=== PATIENT | male | born 1950 | race Caucasian/White ===

== ENCOUNTER 2022-02-08 07:35 | Inpatient (IN) ==
[~2022-02-08 07:35] MED LIST: cefTRIAXone 1,000 MG in SODIUM CHLORIDE 0.9% 100 ML IV ONE
[2022-02-08] MEDS: LACTATED RINGERS 1,000 ML IV SCH ×2 (09:02→12:24)
[2022-02-08] MEDS ORDERED: ONDANSETRON 4 MG/2 ML VIAL ONE (09:05)
[2022-02-08] MEDS ORDERED: MIDAZOLAM 2 MG/2 ML VIAL ONE (09:05)
[2022-02-08] MEDS ORDERED: propofoL 200 MG/20 ML VIAL IV ONE (09:05)
[2022-02-08] MEDS ORDERED: fentaNYL 100 MCG/2 ML VIAL ONE (09:05)
[2022-02-08] MEDS ORDERED: PHENYLEPHRINE 1 MG/10 ML SYRINGE IV ONE (09:05)
[2022-02-08] MEDS ORDERED: LIDOCAINE 2% 5 ML VIAL ONE (09:05)
[2022-02-08] MEDS ORDERED: SEVOFLURANE 1 UNIT/15 MINUTE INH ONE (09:05)
[2022-02-08] MEDS ORDERED: ACETAMINOPHEN INJ 1,000 MG/100 ML VIAL IV ONE (10:06)
[2022-02-08] MEDS ORDERED: LACTATED RINGERS 1,000 ML IV ONE (11:33)
[2022-02-08] MEDS ORDERED: HYDROmorphone 1 MG/1 ML SYRINGE IV PRN (11:47)
[2022-02-08] MEDS ORDERED: oxyCODONE/ACETAMINOPHEN 5-325 MG TABLET PO PRN (11:47)
[2022-02-08] MEDS ORDERED: diphenhydrAMINE 50 MG/1 ML VIAL IV PRN (11:47)
[2022-02-08] MEDS ORDERED: PROMETHAZINE 25 MG/1 ML VIAL IM PRN (11:47)
[2022-02-08] MEDS ORDERED: MORPHINE ER 30 MG TABLET PO PRN (11:51)
[2022-02-08] MEDS ORDERED: CALCIUM CARBONATE CHEW 500 MG TABLET PO PRN (12:18)
[2022-02-08] MEDS ORDERED: SIMETHICONE CHEW 125 MG TABLET PO PRN (12:22)
[2022-02-08] MEDS ORDERED: NITROGLYCERIN SL 0.4 MG TABLET SL PRN (12:34)
[2022-02-08] MEDS ORDERED: ONDANSETRON 4 MG/2 ML VIAL IV PRN (12:37)
[2022-02-08] MEDS: HYDROmorphone 1 MG/1 ML SYRINGE IV PRN ×7 (12:39→23:06)
[2022-02-08] MEDS ORDERED: LABETALOL 20 MG/4 ML SYRINGE IV ONE ×2 (12:55→13:05)
[2022-02-08] MEDS ORDERED: hydrALAZINE 20 MG/1 ML VIAL IV ONE (13:37)
[2022-02-08] MEDS ORDERED: hydrALAZINE 20 MG/1 ML VIAL ONE (13:40)
[2022-02-08] MEDS: ACETAMINOPHEN 325 MG TABLET PO SCH ×2 (14:28→17:36)
[2022-02-08] MEDS: SODIUM CHLORIDE 0.9% 1,000 ML IV SCH (14:40)
[2022-02-08] MEDS ORDERED: NON-FORMULARY MEDICATION (Oxycodone-Acetaminophen 10-325 mg Tablet) PO PRN (15:41)
[2022-02-08] MEDS: PROPRANOLOL 20 MG TABLET PO SCH (20:43)
[2022-02-08] MEDS: PREGABALIN 75 MG CAPSULE PO SCH (20:43)
[2022-02-08] MEDS: ZALEPLON 5 MG CAPSULE PO SCH (20:43)
[2022-02-08] MEDS: RANOLAZINE 500 MG TABLET PO SCH (20:44)
[2022-02-08] MEDS: MORPHINE ER 15 MG TABLET PO SCH (20:44)
[2022-02-08] MEDS: DOCUSATE SODIUM 100 MG CAPSULE PO SCH (20:45)
[2022-02-08] MEDS: CYCLOBENZAPRINE 10 MG TABLET PO PRN (21:42)
[2022-02-08] MEDS ORDERED: hydrALAZINE 20 MG/1 ML VIAL IV PRN (23:20)
[2022-02-09] MEDS: ACETAMINOPHEN 325 MG TABLET PO SCH ×4 (01:00→19:32)
[2022-02-09] MEDS: HYDROmorphone 1 MG/1 ML SYRINGE IV PRN ×2 (02:19→05:38)
[2022-02-09] MEDS: SODIUM CHLORIDE 0.9% 1,000 ML IV SCH ×2 (03:33→18:13)
[2022-02-09] MEDS: MORPHINE ER 15 MG TABLET PO SCH (08:46)
[2022-02-09] MEDS: ASPIRIN EC 81 MG TABLET PO SCH (08:46)
[2022-02-09] MEDS: CYCLOBENZAPRINE 10 MG TABLET PO PRN (08:46)
[2022-02-09] MEDS: RANOLAZINE 500 MG TABLET PO SCH ×2 (08:47→21:34)
[2022-02-09] MEDS: TAMSULOSIN 0.4 MG CAPSULE PO SCH (08:47)
[2022-02-09] MEDS: FINASTERIDE 5 MG TABLET PO SCH (08:47)
[2022-02-09] MEDS: PREGABALIN 75 MG CAPSULE PO SCH ×2 (08:48→21:35)
[2022-02-09] MEDS: DOCUSATE SODIUM 100 MG CAPSULE PO SCH ×2 (08:48→21:34)
[2022-02-09 10:33] LABS: Basophils % 0.2 % (0.0-0.8); Eosinophils # 0.1 10*3/uL (0.0-0.87); Eosinophils % 0.7 % (0.00-10.9); Hematocrit 40.5 VOL% (42.0-52.0); Hemoglobin 13.6 GM/DL (14.0-18.0); Immature Granulocytes % 0.3 %; Immature Granulocytes Absolute 0.03 #; Lymphocytes # 2.2 10*3/uL (1.4-4.0); Lymphocytes % 21.4 % (21.2-54.2); Mean Corpuscular HGB Conc 33.6 GM/DL (32-36); Mean Corpuscular Volume 96.4 FL (87-102); Mean Platelet Volume 10.3 FL (9.6-12.0); Monocytes # 1.8 10*3/uL (0.11-0.8); Monocytes % 17.3 % (1.7-12.7); Neutrophils % 60.1 % (38.7-73.9); Platelet Count 184 T/CUMM (130-400); Red Cell Distribution Width 13.4 % (9.3-17.3); White Blood Count 10.3 T/CUMM (4-12)
[2022-02-09 10:46] LABS: Calcium 8.1 MG/DL (8.5-10.1); Osmolality,Calculated 273.7 MOS/KG (273-304); Potassium 3.4 MMOL/L (3.5-5.1)
[2022-02-09] MEDS: oxyCODONE/ACETAMINOPHEN 5-325 MG TABLET PO PRN ×3 (10:56→20:12)
[2022-02-09] MEDS: POLYETHYLENE GLYCOL POWDER 17 GM PACK PO SCH (10:57)
[2022-02-09] MEDS: cefTRIAXone 1,000 MG in SODIUM CHLORIDE 0.9% 100 ML IV SCH (10:58)
[2022-02-09 11:07] LABS: Anisocytosis Slight; Eosinophils 1 % (0-10); Lymphocytes 9 % (20-55); Platelet Estimate Adequate; Stomatocytes Slight; Total Cells Counted 100
[2022-02-09] MEDS ORDERED: MAGNESIUM SULF RIDER 4 GM/100 ML PREMIX IV PRN (13:43)
[2022-02-09] MEDS: ONDANSETRON 4 MG/2 ML VIAL IV PRN (13:48)
[2022-02-09] MEDS: PANTOPRAZOLE 40 MG TABLET PO SCH (13:48)
[2022-02-09] MEDS: carvediloL 12.5 MG TABLET PO SCH ×2 (13:48→21:35)
[2022-02-09] MEDS: SERTRALINE 100 MG TABLET PO SCH (13:48)
[2022-02-09] MEDS: OXYBUTYNIN 5 MG TABLET PO SCH ×2 (15:15→21:35)
[2022-02-09] MEDS: MAGNESIUM SULF RIDER 2 GM/50 ML PREMIX IV PRN (16:06)
[2022-02-09] MEDS: LACTATED RINGERS 1,000 ML IV SCH (18:10)
[2022-02-09] MEDS: POTASSIUM CHLORIDE 20 MEQ TABLET PO PRN ×2 (20:11→21:46)
[2022-02-09] MEDS: ATORVASTATIN 40 MG TABLET PO SCH (21:34)
[2022-02-09] MEDS: ZALEPLON 5 MG CAPSULE PO SCH (21:35)
[2022-02-09] MEDS: PROPRANOLOL 20 MG TABLET PO SCH (21:35)
[2022-02-09] MEDS: MORPHINE ER 30 MG TABLET PO SCH (21:35)
[2022-02-10] MEDS: ACETAMINOPHEN 325 MG TABLET PO SCH ×4 (00:19→18:23)
[2022-02-10] MEDS: POTASSIUM CHLORIDE 20 MEQ TABLET PO PRN (00:19)
[2022-02-10] MEDS: oxyCODONE/ACETAMINOPHEN 5-325 MG TABLET PO PRN ×6 (00:20→23:40)
[2022-02-10 05:40] LABS: Basophils % 0.2 % (0.0-0.8); Eosinophils # 0.2 10*3/uL (0.0-0.87); Eosinophils % 2.1 % (0.00-10.9); Hematocrit 39.1 VOL% (42.0-52.0); Immature Granulocytes % 0.3 %; Immature Granulocytes Absolute 0.03 #; Lymphocytes % 33.8 % (21.2-54.2); Mean Corpuscular HGB Conc 33.2 GM/DL (32-36); Mean Corpuscular Volume 98.2 FL (87-102); Mean Platelet Volume 10.7 FL (9.6-12.0); Monocytes # 1.3 10*3/uL (0.11-0.8); Monocytes % 14.7 % (1.7-12.7); Neutrophils % 48.9 % (38.7-73.9); Platelet Count 177 T/CUMM (130-400); Red Blood Count 3.98 MC/CUMM (3.8-5.5); Red Cell Distribution Width 13.5 % (9.3-17.3); White Blood Count 8.8 T/CUMM (4-12)
[2022-02-10 05:50] LABS: Calcium 7.7 MG/DL (8.5-10.1); Osmolality,Calculated 276.4 MOS/KG (273-304)
[2022-02-10 05:56] LABS: Risk Ratio 2.84; VLDL Cholesterol 17.6 MG/DL
[2022-02-10] MEDS: SODIUM CHLORIDE 0.9% 1,000 ML IV SCH ×3 (07:36→21:38)
[2022-02-10] MEDS: PREGABALIN 75 MG CAPSULE PO SCH ×2 (09:10→20:46)
[2022-02-10] MEDS: POLYETHYLENE GLYCOL POWDER 17 GM PACK PO SCH (09:10)
[2022-02-10] MEDS: carvediloL 12.5 MG TABLET PO SCH ×2 (09:11→20:46)
[2022-02-10] MEDS: TAMSULOSIN 0.4 MG CAPSULE PO SCH (09:11)
[2022-02-10] MEDS: MORPHINE ER 30 MG TABLET PO SCH ×2 (09:11→21:40)
[2022-02-10] MEDS: SERTRALINE 100 MG TABLET PO SCH (09:11)
[2022-02-10] MEDS: DOCUSATE SODIUM 100 MG CAPSULE PO SCH ×2 (09:11→20:47)
[2022-02-10] MEDS: FINASTERIDE 5 MG TABLET PO SCH (09:11)
[2022-02-10] MEDS: RANOLAZINE 500 MG TABLET PO SCH ×2 (09:11→20:47)
[2022-02-10] MEDS: ASPIRIN EC 81 MG TABLET PO SCH (09:12)
[2022-02-10] MEDS: OXYBUTYNIN 5 MG TABLET PO SCH ×3 (09:12→20:47)
[2022-02-10] MEDS: PANTOPRAZOLE 40 MG TABLET PO SCH (09:12)
[2022-02-10] MEDS: cefTRIAXone 1,000 MG in SODIUM CHLORIDE 0.9% 100 ML IV SCH (09:12)
[2022-02-10] MEDS: CYCLOBENZAPRINE 10 MG TABLET PO PRN (11:14)
[2022-02-10] MEDS: LACTATED RINGERS 1,000 ML IV SCH (11:17)
[2022-02-10] MEDS: ZALEPLON 5 MG CAPSULE PO SCH (20:46)
[2022-02-10] MEDS: PROPRANOLOL 20 MG TABLET PO SCH (20:47)
[2022-02-10] MEDS: ATORVASTATIN 40 MG TABLET PO SCH (21:40)
[2022-02-11] MEDS: ACETAMINOPHEN 325 MG TABLET PO SCH ×5 (01:44→23:49)
[2022-02-11] MEDS: CYCLOBENZAPRINE 10 MG TABLET PO PRN ×2 (01:44→21:20)
[2022-02-11] MEDS: oxyCODONE/ACETAMINOPHEN 5-325 MG TABLET PO PRN ×5 (04:21→22:22)
[2022-02-11 06:09] LABS: Basophils % 0.1 % (0.0-0.8); Eosinophils # 0.2 10*3/uL (0.0-0.87); Eosinophils % 2.1 % (0.00-10.9); Hematocrit 37.4 VOL% (42.0-52.0); Hemoglobin 12.6 GM/DL (14.0-18.0); Immature Granulocytes % 0.1 %; Immature Granulocytes Absolute 0.01 #; Lymphocytes # 2.2 10*3/uL (1.4-4.0); Lymphocytes % 29.9 % (21.2-54.2); Mean Corpuscular HGB Conc 33.7 GM/DL (32-36); Mean Corpuscular Volume 98.2 FL (87-102); Mean Platelet Volume 10.9 FL (9.6-12.0); Monocytes % 13.3 % (1.7-12.7); Neutrophils % 54.5 % (38.7-73.9); Platelet Count 179 T/CUMM (130-400); Red Blood Count 3.81 MC/CUMM (3.8-5.5); Red Cell Distribution Width 13.3 % (9.3-17.3); White Blood Count 7.5 T/CUMM (4-12)
[2022-02-11 06:38] LABS: Calcium 8.1 MG/DL (8.5-10.1); Osmolality,Calculated 275.4 MOS/KG (273-304); Potassium 3.5 MMOL/L (3.5-5.1)
[2022-02-11] MEDS ORDERED: carvediloL 12.5 MG TABLET PO SCH (08:00)
[2022-02-11] MEDS: FINASTERIDE 5 MG TABLET PO SCH (09:27)
[2022-02-11] MEDS: TAMSULOSIN 0.4 MG CAPSULE PO SCH ×2 (09:27→21:20)
[2022-02-11] MEDS: DOCUSATE SODIUM 100 MG CAPSULE PO SCH ×2 (09:28→21:27)
[2022-02-11] MEDS: cefTRIAXone 1,000 MG in SODIUM CHLORIDE 0.9% 100 ML IV SCH (09:28)
[2022-02-11] MEDS: ASPIRIN EC 81 MG TABLET PO SCH (09:28)
[2022-02-11] MEDS: RANOLAZINE 500 MG TABLET PO SCH ×2 (09:28→21:20)
[2022-02-11] MEDS: SERTRALINE 100 MG TABLET PO SCH (09:28)
[2022-02-11] MEDS: PREGABALIN 75 MG CAPSULE PO SCH ×2 (09:28→21:21)
[2022-02-11] MEDS: PANTOPRAZOLE 40 MG TABLET PO SCH (09:28)
[2022-02-11] MEDS: OXYBUTYNIN 5 MG TABLET PO SCH (09:28)
[2022-02-11] MEDS: POLYETHYLENE GLYCOL POWDER 17 GM PACK PO SCH ×2 (09:29→11:26)
[2022-02-11] MEDS: LACTATED RINGERS 1,000 ML IV SCH (09:33)
[2022-02-11] MEDS: MORPHINE ER 30 MG TABLET PO SCH ×2 (09:34→21:23)
[2022-02-11] MEDS: SODIUM CHLORIDE 0.9% 1,000 ML IV SCH (09:34)
[2022-02-11] MEDS ORDERED: MORPHINE ER 30 MG TABLET PO ONE (12:15)
[2022-02-11] MEDS: carvediloL 25 MG TABLET PO SCH (17:34)
[2022-02-11] MEDS: ONDANSETRON 4 MG/2 ML VIAL IV PRN (17:35)
[2022-02-11] MEDS: ZALEPLON 5 MG CAPSULE PO SCH (21:20)
[2022-02-11] MEDS: ATORVASTATIN 40 MG TABLET PO SCH (21:20)
[2022-02-11 22:51] LABS: Stone Analysis Interpretation SEE COMMENTS; Stone Source Left Ureter
[2022-02-12] MEDS: oxyCODONE/ACETAMINOPHEN 5-325 MG TABLET PO PRN ×2 (02:27→06:22)
[2022-02-12 05:41] LABS: Basophils % 0.3 % (0.0-0.8); Eosinophils # 0.2 10*3/uL (0.0-0.87); Eosinophils % 2.2 % (0.00-10.9); Hematocrit 35.9 VOL% (42.0-52.0); Hemoglobin 12.1 GM/DL (14.0-18.0); Immature Granulocytes % 0.3 %; Immature Granulocytes Absolute 0.02 #; Lymphocytes # 2.9 10*3/uL (1.4-4.0); Lymphocytes % 40.1 % (21.2-54.2); Mean Corpuscular HGB Conc 33.7 GM/DL (32-36); Mean Corpuscular Volume 97.8 FL (87-102); Mean Platelet Volume 10.7 FL (9.6-12.0); Monocytes # 1.1 10*3/uL (0.11-0.8); Monocytes % 14.8 % (1.7-12.7); Neutrophils % 42.3 % (38.7-73.9); Platelet Count 203 T/CUMM (130-400); Red Blood Count 3.67 MC/CUMM (3.8-5.5); Red Cell Distribution Width 13.3 % (9.3-17.3); White Blood Count 7.2 T/CUMM (4-12)
[2022-02-12 05:54] LABS: Osmolality,Calculated 276.4 MOS/KG (273-304); Potassium 3.8 MMOL/L (3.5-5.1)
[2022-02-12] MEDS: POTASSIUM CHLORIDE 20 MEQ TABLET PO PRN (06:22)
[2022-02-12] MEDS: MAGNESIUM SULF RIDER 2 GM/50 ML PREMIX IV PRN (06:23)
[2022-02-12] MEDS: ACETAMINOPHEN 325 MG TABLET PO SCH (06:29)
[2022-02-12 07:18] VITALS: BP 156/75
[2022-02-12] MEDS: POLYETHYLENE GLYCOL POWDER 17 GM PACK PO SCH (08:52)
[2022-02-12] MEDS: cefTRIAXone 1,000 MG in SODIUM CHLORIDE 0.9% 100 ML IV SCH (08:52)
[2022-02-12] MEDS: PANTOPRAZOLE 40 MG TABLET PO SCH (08:53)
[2022-02-12] MEDS: MORPHINE ER 30 MG TABLET PO SCH (08:54)
[2022-02-12] MEDS: PREGABALIN 75 MG CAPSULE PO SCH (08:54)
[2022-02-12] MEDS: FINASTERIDE 5 MG TABLET PO SCH (08:54)
[2022-02-12] MEDS: SERTRALINE 100 MG TABLET PO SCH (08:54)
[2022-02-12] MEDS: RANOLAZINE 500 MG TABLET PO SCH (08:54)
[2022-02-12] MEDS: ASPIRIN EC 81 MG TABLET PO SCH (08:56)
[2022-02-12] MEDS: TAMSULOSIN 0.4 MG CAPSULE PO SCH (08:57)
[2022-02-12] MEDS: carvediloL 25 MG TABLET PO SCH (08:57)
[2022-02-12] MEDS: DOCUSATE SODIUM 100 MG CAPSULE PO SCH (08:57)
[2022-02-12] MEDS: LACTATED RINGERS 1,000 ML IV SCH (11:05)
[2022-02-12] MEDS ORDERED: MORPHINE ER 30 MG TABLET PO SCH (12:00)
== END 2022-02-12 10:35 | disposition home or self-care (01) | DRG 661 ==
LOC: N.OR 07:35 → N.SDSINP 07:35 → N.3E 14:14
PROVIDERS: ADMIT Surgery; ATTEND Surgery

== ENCOUNTER 2022-03-08 17:00 | Inpatient (IN) ==
[~2022-03-08 17:00] MED LIST changes: +PIPERACILLIN/TAZOBACTAM 3,375 MG in SODIUM CHLORIDE 0.9% 100 ML IV SCH; -cefTRIAXone 1,000 MG in SODIUM CHLORIDE 0.9% 100 ML IV ONE
[2022-03-08] MEDS ORDERED: SODIUM CHLORIDE 0.9% 1,000 ML IV STA (17:45)
[2022-03-08] MEDS ORDERED: ONDANSETRON 4 MG/2 ML VIAL IV STA (17:45)
[2022-03-08 17:56] LABS: Basophils % 0.1 % (0.0-0.8); Hematocrit 43.6 VOL% (42.0-52.0); Hemoglobin 15.5 GM/DL (14.0-18.0); Immature Granulocytes % 0.1 %; Immature Granulocytes Absolute 0.01 #; Lymphocytes # 1.7 10*3/uL (1.4-4.0); Lymphocytes % 24.5 % (21.2-54.2); Mean Corpuscular HGB Conc 35.6 GM/DL (32-36); Mean Platelet Volume 10.9 FL (9.6-12.0); Monocytes # 0.7 10*3/uL (0.11-0.8); Monocytes % 10.8 % (1.7-12.7); Neutrophils % 64.5 % (38.7-73.9); Platelet Count 254 T/CUMM (130-400); Red Blood Count 4.79 MC/CUMM (3.8-5.5); Red Cell Distribution Width 12.2 % (9.3-17.3); White Blood Count 6.8 T/CUMM (4-12)
[2022-03-08 18:14] LABS: Calcium 8.8 MG/DL (8.5-10.1); Osmolality,Calculated 276.5 MOS/KG (273-304); Potassium 3.3 MMOL/L (3.5-5.1); Total Protein 7.1 G/DL (6.4-8.2)
[2022-03-08] MEDS ORDERED: PROMETHAZINE INJ 12.5 MG in SODIUM CHLORIDE 0.9% 50 ML IV STA (18:56)
[2022-03-08] MEDS ORDERED: PIPERACILLIN/TAZOBACTAM 3,375 MG in SODIUM CHLORIDE 0.9% 100 ML IV STA (18:56)
[2022-03-08] MEDS ORDERED: HYDROmorphone 1 MG/1 ML SYRINGE IV STA (19:19)
[2022-03-08] MEDS ORDERED: PROMETHAZINE 25 MG/1 ML VIAL ONE ×2 (19:24)
[2022-03-08] MEDS ORDERED: GLUCAGON 1 MG VIAL IM PRN (19:46)
[2022-03-08] MEDS ORDERED: hydrALAZINE 20 MG/1 ML VIAL IV PRN (19:46)
[2022-03-08] MEDS ORDERED: PROMETHAZINE 25 MG/1 ML VIAL IM PRN (19:46)
[2022-03-08] MEDS ORDERED: DEXTROSE 10% 250 ML BAG IV PRN (19:56)
[2022-03-08] MEDS ORDERED: POTASSIUM CHLORIDE 20 MEQ TABLET PO STA (19:56)
[2022-03-08] MEDS ORDERED: MAGNESIUM SULF RIDER 2 GM/50 ML PREMIX IV ONE (19:56)
[2022-03-08] MEDS ORDERED: ZALEPLON 5 MG CAPSULE PO PRN (20:19)
[2022-03-08] MEDS: ENOXAPARIN 40 MG/0.4 ML SYRINGE SUBCUT SCH (21:00)
[2022-03-08] MEDS: SODIUM CHLORIDE 0.9% 1,000 ML IV SCH (21:00)
[2022-03-08 21:45] LABS: Mucus,Urine Occasional /LPF (Occasional); RBC,Urine 454 /HPF (0-4)
[2022-03-08 21:46] LABS: Bilirubin,Urine Negative (Negative); Blood, Urine Large mg/dL (Negative); Glucose,Urine (UA) Negative (Negative); Ketones,Urine 80 mg/dL (Negative); Nitrite,Urine Negative (Negative); Protein,Urine 30 mg/dL (Negative); Urine Appearance Clear (Clear); Urine Color Yellow (Yellow); Urine Specific Gravity 1.015 (1.001-1.035); Urine Urobilinogen 0.2 eU/dL (<2.0)
[2022-03-08] MEDS: ATORVASTATIN 40 MG TABLET PO SCH (22:00)
[2022-03-08] MEDS: RANOLAZINE 500 MG TABLET PO SCH (22:00)
[2022-03-08] MEDS: TAMSULOSIN 0.4 MG CAPSULE PO SCH (22:01)
[2022-03-08] MEDS: HYDROmorphone 1 MG/1 ML SYRINGE IV PRN (23:50)
[2022-03-09] MEDS ORDERED: OXYMETAZOLINE 0.05% NASAL SPRAY 15 ML BOTTLE BOTH NARES PRN (00:49)
[2022-03-09] MEDS ORDERED: ACETAMINOPHEN 325 MG TABLET PO ONE (00:53)
[2022-03-09] MEDS: PIPERACILLIN/TAZOBACTAM 3,375 MG in SODIUM CHLORIDE 0.9% 100 ML IV SCH ×3 (03:16→20:35)
[2022-03-09] MEDS: HYDROmorphone 1 MG/1 ML SYRINGE IV PRN ×2 (04:13→08:05)
[2022-03-09 05:44] LABS: Basophils % 0.1 % (0.0-0.8); Eosinophils # 0.1 10*3/uL (0.0-0.87); Eosinophils % 0.8 % (0.00-10.9); Hematocrit 36.6 VOL% (42.0-52.0); Immature Granulocytes % 0.3 %; Immature Granulocytes Absolute 0.02 #; Lymphocytes # 2.7 10*3/uL (1.4-4.0); Mean Corpuscular HGB Conc 35.5 GM/DL (32-36); Mean Corpuscular Volume 92.2 FL (87-102); Mean Platelet Volume 11.2 FL (9.6-12.0); Monocytes % 13.6 % (1.7-12.7); Neutrophils % 48.2 % (38.7-73.9); Platelet Count 202 T/CUMM (130-400); Red Blood Count 3.97 MC/CUMM (3.8-5.5); Red Cell Distribution Width 12.5 % (9.3-17.3); White Blood Count 7.4 T/CUMM (4-12)
[2022-03-09 06:12] LABS: Albumin 3.4 G/DL (3.4-5.0); Bilirubin,Total 0.8 MG/DL (0.20-1.00); Calcium 7.9 MG/DL (8.5-10.1); Osmolality,Calculated 278.3 MOS/KG (273-304); Potassium 3.3 MMOL/L (3.5-5.1); Risk Ratio 3.12; Total Protein 6.1 G/DL (6.4-8.2); VLDL Cholesterol 27.2 MG/DL
[2022-03-09] MEDS ORDERED: POTASSIUM CHLORIDE 20 MEQ TABLET PO ONE (07:37)
[2022-03-09 08:43] LABS: AFP Tumor 5.9 NG/ML (0-8); Carcinoembryonic Antigen < 0.50 NG/ML (0.0-5.0)
[2022-03-09 08:45] LABS: Cancer Antigen 19-9 4.55 U/ML (0-35)
[2022-03-09] MEDS: ONDANSETRON 4 MG/2 ML VIAL IV PRN (09:23)
[2022-03-09] MEDS: PANTOPRAZOLE 40 MG VIAL IV SCH (11:21)
[2022-03-09] MEDS: RANOLAZINE 500 MG TABLET PO SCH ×2 (11:22→20:35)
[2022-03-09] MEDS: carvediloL 12.5 MG TABLET PO SCH ×2 (11:23→16:40)
[2022-03-09] MEDS: PREGABALIN 75 MG CAPSULE PO SCH ×2 (11:23→20:35)
[2022-03-09] MEDS: TAMSULOSIN 0.4 MG CAPSULE PO SCH ×2 (11:23→20:35)
[2022-03-09] MEDS: ASPIRIN EC 81 MG TABLET PO SCH (11:24)
[2022-03-09] MEDS ORDERED: amLODIPine 5 MG TABLET PO ONE (11:26)
[2022-03-09] MEDS: SODIUM CHLORIDE 0.9% 1,000 ML IV SCH ×2 (11:29→14:09)
[2022-03-09] MEDS ORDERED: SIMETHICONE CHEW 125 MG TABLET PO ONE (11:30)
[2022-03-09] MEDS ORDERED: BUTALBITAL/ACETAMIN/CAFFEINE 50-325-40 MG TABLET PO SCH (13:00)
[2022-03-09] MEDS ORDERED: oxyCODONE/ACETAMINOPHEN 5-325 MG TABLET PO SCH ×2 (13:00→15:00)
[2022-03-09] MEDS ORDERED: MORPHINE ER 30 MG TABLET PO SCH ×2 (15:00→22:00)
[2022-03-09] MEDS ORDERED: BUTALBITAL/ACETAMIN/CAFFEINE 50-325-40 MG TABLET PO PRN (16:22)
[2022-03-09] MEDS: MORPHINE ER 30 MG TABLET PO SCH (20:35)
[2022-03-09] MEDS: ENOXAPARIN 40 MG/0.4 ML SYRINGE SUBCUT SCH (20:35)
[2022-03-09] MEDS: ATORVASTATIN 40 MG TABLET PO SCH (20:35)
[2022-03-10] MEDS: oxyCODONE/ACETAMINOPHEN 5-325 MG TABLET PO PRN ×4 (00:30→23:10)
[2022-03-10] MEDS: traZODone 50 MG TABLET PO PRN ×2 (00:30→22:10)
[2022-03-10] MEDS: PIPERACILLIN/TAZOBACTAM 3,375 MG in SODIUM CHLORIDE 0.9% 100 ML IV SCH ×3 (04:00→20:30)
[2022-03-10 06:00] LABS: Basophils % 0.3 % (0.0-0.8); Eosinophils # 0.2 10*3/uL (0.0-0.87); Eosinophils % 2.1 % (0.00-10.9); Hematocrit 38.6 VOL% (42.0-52.0); Hemoglobin 13.2 GM/DL (14.0-18.0); Immature Granulocytes % 0.1 %; Immature Granulocytes Absolute 0.01 #; Lymphocytes # 3.8 10*3/uL (1.4-4.0); Lymphocytes % 50.3 % (21.2-54.2); Mean Corpuscular HGB Conc 34.2 GM/DL (32-36); Mean Corpuscular Volume 92.8 FL (87-102); Mean Platelet Volume 11.2 FL (9.6-12.0); Monocytes % 13.8 % (1.7-12.7); Neutrophils % 33.4 % (38.7-73.9); Platelet Count 205 T/CUMM (130-400); Red Blood Count 4.16 MC/CUMM (3.8-5.5); Red Cell Distribution Width 12.6 % (9.3-17.3); White Blood Count 7.5 T/CUMM (4-12)
[2022-03-10 06:08] LABS: Calcium 8.1 MG/DL (8.5-10.1); Potassium 3.4 MMOL/L (3.5-5.1)
[2022-03-10] MEDS: MORPHINE ER 30 MG TABLET PO SCH ×3 (06:25→20:30)
[2022-03-10 07:31] LABS: Eosinophils 2 % (0-10); Lymphocytes 49 % (20-55); Platelet Estimate Normal; Total Cells Counted 100
[2022-03-10 07:33] LABS: Ovalocytes Slight
[2022-03-10 07:34] LABS: Anisocytosis Slight
[2022-03-10] MEDS ORDERED: POTASSIUM CHLORIDE 20 MEQ TABLET PO ONE (10:01)
[2022-03-10] MEDS: SODIUM CHLORIDE 0.9% 1,000 ML IV SCH ×2 (10:46→16:51)
[2022-03-10] MEDS: amLODIPine 5 MG TABLET PO SCH (10:46)
[2022-03-10] MEDS: FINASTERIDE 5 MG TABLET PO SCH (10:47)
[2022-03-10] MEDS: TAMSULOSIN 0.4 MG CAPSULE PO SCH ×2 (10:47→20:30)
[2022-03-10] MEDS: PANTOPRAZOLE 40 MG VIAL IV SCH (10:47)
[2022-03-10] MEDS: ASPIRIN EC 81 MG TABLET PO SCH (10:47)
[2022-03-10] MEDS: RANOLAZINE 500 MG TABLET PO SCH ×2 (10:47→20:30)
[2022-03-10] MEDS: carvediloL 12.5 MG TABLET PO SCH ×2 (10:47→17:29)
[2022-03-10] MEDS: PREGABALIN 75 MG CAPSULE PO SCH ×2 (10:47→20:30)
[2022-03-10] MEDS: ATORVASTATIN 40 MG TABLET PO SCH (20:30)
[2022-03-10] MEDS: ENOXAPARIN 40 MG/0.4 ML SYRINGE SUBCUT SCH (20:30)
[2022-03-10] MEDS: ONDANSETRON 4 MG/2 ML VIAL IV PRN (20:45)
[2022-03-10] MEDS: SIMETHICONE CHEW 125 MG TABLET PO PRN (20:45)
[2022-03-11] MEDS: PIPERACILLIN/TAZOBACTAM 3,375 MG in SODIUM CHLORIDE 0.9% 100 ML IV SCH ×2 (03:05→12:09)
[2022-03-11] MEDS: MORPHINE ER 30 MG TABLET PO SCH ×2 (05:30→12:25)
[2022-03-11 05:38] LABS: Basophils % 0.3 % (0.0-0.8); Eosinophils # 0.2 10*3/uL (0.0-0.87); Hematocrit 33.9 VOL% (42.0-52.0); Hemoglobin 11.6 GM/DL (14.0-18.0); Immature Granulocytes % 0.2 %; Immature Granulocytes Absolute 0.01 #; Lymphocytes # 3.1 10*3/uL (1.4-4.0); Lymphocytes % 52.6 % (21.2-54.2); Mean Corpuscular HGB Conc 34.2 GM/DL (32-36); Mean Corpuscular Volume 93.9 FL (87-102); Mean Platelet Volume 10.7 FL (9.6-12.0); Monocytes # 0.8 10*3/uL (0.11-0.8); Monocytes % 12.9 % (1.7-12.7); Platelet Count 196 T/CUMM (130-400); Red Blood Count 3.61 MC/CUMM (3.8-5.5); Red Cell Distribution Width 12.6 % (9.3-17.3)
[2022-03-11 05:55] LABS: Calcium 8.1 MG/DL (8.5-10.1); Osmolality,Calculated 280.1 MOS/KG (273-304); Potassium 3.4 MMOL/L (3.5-5.1)
[2022-03-11 06:07] LABS: Eosinophils 2 % (0-10); Lymphocytes 56 % (20-55); Platelet Estimate Adequate; Total Cells Counted 100
[2022-03-11] MEDS ORDERED: POTASSIUM CHLORIDE 20 MEQ TABLET PO ONE (08:08)
[2022-03-11] MEDS ORDERED: metroNIDAZOLE 500 MG TABLET PO SCH (09:00)
[2022-03-11] MEDS: RANOLAZINE 500 MG TABLET PO SCH (10:25)
[2022-03-11] MEDS: carvediloL 12.5 MG TABLET PO SCH (10:25)
[2022-03-11] MEDS: ASPIRIN EC 81 MG TABLET PO SCH (10:25)
[2022-03-11] MEDS: PANTOPRAZOLE 40 MG VIAL IV SCH (10:25)
[2022-03-11] MEDS: SIMETHICONE CHEW 125 MG TABLET PO PRN (10:26)
[2022-03-11] MEDS: TAMSULOSIN 0.4 MG CAPSULE PO SCH (10:26)
[2022-03-11] MEDS: PREGABALIN 75 MG CAPSULE PO SCH (10:26)
[2022-03-11] MEDS: FINASTERIDE 5 MG TABLET PO SCH (10:26)
[2022-03-11] MEDS: oxyCODONE/ACETAMINOPHEN 5-325 MG TABLET PO PRN (10:26)
[2022-03-11] MEDS: amLODIPine 5 MG TABLET PO SCH (10:26)
[2022-03-11 12:40] VITALS: BP 142/85
== END 2022-03-11 13:31 | disposition home or self-care (01) | DRG 988 ==
LOC: EDUNIT# → EDBD → N.ED 17:00 → N.EDINP 19:46 → N.5E 21:46
PROVIDERS: ADMIT Internal Medicine; ATTEND Internal Medicine

== ENCOUNTER 2022-10-21 15:17 | Inpatient (IN) ==
[2022-10-21] MEDS ORDERED: ONDANSETRON 4 MG/2 ML VIAL IV ONE ×2 (15:41→17:26)
[2022-10-21] MEDS ORDERED: ACETAMINOPHEN 325 MG TABLET PO ONE (15:41)
[2022-10-21] MEDS ORDERED: SODIUM CHLORIDE 0.9% 1,000 ML IV STA (15:41)
[2022-10-21] MEDS ORDERED: MORPHINE 2 MG/1 ML SYRINGE IV ONE ×2 (15:41→17:26)
[2022-10-21 15:49] LABS: Basophils % 0.3 % (0.0-0.8); Eosinophils # 0.1 10*3/uL (0.0-0.87); Eosinophils % 0.9 % (0.00-10.9); Hemoglobin 11.9 GM/DL (14.0-18.0); Immature Granulocytes % 0.4 %; Immature Granulocytes Absolute 0.03 #; Lymphocytes # 1.2 10*3/uL (1.4-4.0); Lymphocytes % 17.4 % (21.2-54.2); Mean Corpuscular Volume 90.2 FL (87-102); Mean Platelet Volume 9.3 FL (9.6-12.0); Monocytes # 1.1 10*3/uL (0.11-0.8); Monocytes % 15.4 % (1.7-12.7); Neutrophils % 65.6 % (38.7-73.9); Platelet Count 202 T/CUMM (130-400); Red Blood Count 3.88 MC/CUMM (3.8-5.5); Red Cell Distribution Width 12.9 % (9.3-17.3)
[2022-10-21 16:11] LABS: Albumin 3.2 G/DL (3.4-5.0); Bilirubin,Total 0.4 MG/DL (0.20-1.00); Calcium 8.5 MG/DL (8.5-10.1); Osmolality,Calculated 267.2 MOS/KG (273-304); Potassium 3.8 MMOL/L (3.5-5.1); Total Protein 6.7 G/DL (6.4-8.2)
[2022-10-21] MEDS ORDERED: PIPERACILLIN/TAZOBACTAM 3,375 MG in SODIUM CHLORIDE 0.9% 100 ML IV STA (17:22)
[2022-10-21 17:39] LABS: Mucus,Urine Occasional /LPF (Occasional); RBC,Urine 57 /HPF (0-4)
[2022-10-21 17:40] LABS: Bilirubin,Urine Negative (Negative); Blood, Urine Moderate mg/dL (Negative); Glucose,Urine (UA) Negative (Negative); Ketones,Urine Negative (Negative); Nitrite,Urine Positive (Negative); Protein,Urine 100 mg/dL (Negative); Urine Appearance Cloudy (Clear); Urine Color Yellow (Yellow); Urine Specific Gravity 1.015 (1.001-1.035); Urine Urobilinogen 0.2 eU/dL (<2.0); Urine pH 8.5 (4.5-8.0)
[2022-10-21] MEDS ORDERED: ZALEPLON 5 MG CAPSULE PO PRN (18:29)
[2022-10-21] MEDS ORDERED: DOCUSATE SODIUM 100 MG CAPSULE PO PRN (18:29)
[2022-10-21] MEDS ORDERED: NITROGLYCERIN 0.6 MG SL PRN (18:36)
[2022-10-21] MEDS ORDERED: traZODone 50 MG TABLET PO PRN (18:49)
[2022-10-21] MEDS ORDERED: CYCLOBENZAPRINE 10 MG TABLET PO PRN (18:51)
[2022-10-21] MEDS ORDERED: ENOXAPARIN 40 MG/0.4 ML SYRINGE SUBCUT SCH (21:00)
[2022-10-21] MEDS: MORPHINE ER 15 MG TABLET PO SCH (22:30)
[2022-10-21] MEDS: carvediloL 12.5 MG TABLET PO SCH (22:30)
[2022-10-21] MEDS: PREGABALIN 75 MG CAPSULE PO SCH (22:30)
[2022-10-21] MEDS: RANOLAZINE 500 MG TABLET PO SCH (22:30)
[2022-10-21] MEDS: SODIUM CHLORIDE 0.45% 1,000 ML IV SCH (22:50)
[2022-10-22] MEDS: PIPERACILLIN/TAZOBACTAM 3,375 MG in SODIUM CHLORIDE 0.9% 100 ML IV SCH ×2 (02:30→09:41)
[2022-10-22 04:38] LABS: Basophils % 0.1 % (0.0-0.8); Hematocrit 36.6 VOL% (42.0-52.0); Hemoglobin 12.6 GM/DL (14.0-18.0); Immature Granulocytes % 0.6 %; Immature Granulocytes Absolute 0.07 #; Lymphocytes % 8.3 % (21.2-54.2); Mean Corpuscular HGB Conc 34.4 GM/DL (32-36); Mean Corpuscular Volume 90.4 FL (87-102); Mean Platelet Volume 9.5 FL (9.6-12.0); Monocytes # 0.9 10*3/uL (0.11-0.8); Platelet Count 192 T/CUMM (130-400); Red Blood Count 4.05 MC/CUMM (3.8-5.5); White Blood Count 11.4 T/CUMM (4-12)
[2022-10-22 04:50] LABS: Calcium 7.9 MG/DL (8.5-10.1); Osmolality,Calculated 264.4 MOS/KG (273-304)
[2022-10-22] MEDS: PREGABALIN 75 MG CAPSULE PO SCH ×2 (08:38→21:30)
[2022-10-22] MEDS: carvediloL 12.5 MG TABLET PO SCH ×2 (08:38→21:30)
[2022-10-22] MEDS: ASPIRIN EC 81 MG TABLET PO SCH (08:38)
[2022-10-22] MEDS: ATORVASTATIN 40 MG TABLET PO SCH (08:38)
[2022-10-22] MEDS: TAMSULOSIN 0.4 MG CAPSULE PO SCH (08:38)
[2022-10-22] MEDS: RANOLAZINE 500 MG TABLET PO SCH ×2 (08:38→21:29)
[2022-10-22] MEDS: PANTOPRAZOLE 40 MG TABLET PO SCH (08:38)
[2022-10-22] MEDS: FINASTERIDE 5 MG TABLET PO SCH (08:38)
[2022-10-22] MEDS: MORPHINE ER 15 MG TABLET PO SCH ×2 (08:39→21:30)
[2022-10-22] MEDS ORDERED: CLOPIDOGREL 75 MG TABLET PO SCH (09:00)
[2022-10-22] MEDS: SODIUM CHLORIDE 0.45% 1,000 ML IV SCH ×2 (11:24→17:30)
[2022-10-22] MEDS ORDERED: SODIUM CHLORIDE 0.9% 500 ML IV ONE (11:48)
[2022-10-22] MEDS ORDERED: SODIUM CHLORIDE 0.9% 500 ML IV SCH (12:00)
[2022-10-22] MEDS ORDERED: LACTATED RINGERS 1,000 ML IV ONE (15:08)
[2022-10-22] MEDS: ERTAPENEM 1,000 MG in SODIUM CHLORIDE 0.9% 100 ML IV SCH (16:40)
[2022-10-22] MEDS: ONDANSETRON 4 MG/2 ML VIAL IV PRN (23:00)
[2022-10-23] MEDS: SODIUM CHLORIDE 0.45% 1,000 ML IV SCH ×2 (02:37→10:51)
[2022-10-23 05:48] LABS: Basophils % 0.1 % (0.0-0.8); Eosinophils % 0.3 % (0.00-10.9); Hematocrit 30.9 VOL% (42.0-52.0); Hemoglobin 10.4 GM/DL (14.0-18.0); Immature Granulocytes % 1.3 %; Immature Granulocytes Absolute 0.13 #; Lymphocytes # 1.2 10*3/uL (1.4-4.0); Lymphocytes % 11.3 % (21.2-54.2); Mean Corpuscular HGB Conc 33.7 GM/DL (32-36); Mean Corpuscular Volume 90.1 FL (87-102); Monocytes # 1.2 10*3/uL (0.11-0.8); Monocytes % 11.8 % (1.7-12.7); Neutrophils % 75.2 % (38.7-73.9); Platelet Count 170 T/CUMM (130-400); Red Blood Count 3.43 MC/CUMM (3.8-5.5); Red Cell Distribution Width 13.2 % (9.3-17.3); White Blood Count 10.3 T/CUMM (4-12)
[2022-10-23 06:10] LABS: Albumin 2.5 G/DL (3.4-5.0); Bilirubin,Total 0.4 MG/DL (0.20-1.00); Osmolality,Calculated 263.7 MOS/KG (273-304); Potassium 3.7 MMOL/L (3.5-5.1)
[2022-10-23 06:11] LABS: Lymphocytes 14 % (20-55); Platelet Estimate Adequate; Total Cells Counted 100
[2022-10-23 06:12] LABS: Hypochromia Slight; Microcytosis Slight
[2022-10-23] MEDS: ONDANSETRON 4 MG/2 ML VIAL IV PRN ×2 (06:17→20:02)
[2022-10-23] MEDS: ASPIRIN EC 81 MG TABLET PO SCH (08:22)
[2022-10-23] MEDS: ATORVASTATIN 40 MG TABLET PO SCH (08:23)
[2022-10-23] MEDS: FINASTERIDE 5 MG TABLET PO SCH (08:23)
[2022-10-23] MEDS: PREGABALIN 75 MG CAPSULE PO SCH ×2 (08:23→22:54)
[2022-10-23] MEDS: TAMSULOSIN 0.4 MG CAPSULE PO SCH (08:23)
[2022-10-23] MEDS: MORPHINE ER 15 MG TABLET PO SCH ×2 (08:23→21:07)
[2022-10-23] MEDS: PANTOPRAZOLE 40 MG TABLET PO SCH (08:23)
[2022-10-23] MEDS: carvediloL 12.5 MG TABLET PO SCH ×2 (08:23→22:54)
[2022-10-23] MEDS: RANOLAZINE 500 MG TABLET PO SCH ×2 (08:24→22:54)
[2022-10-23] MEDS: HYDROmorphone 1 MG/1 ML SYRINGE IV PRN ×3 (16:10→23:26)
[2022-10-23 16:28] LABS: Bacteria,Urine Occasional /HPF (Few); RBC,Urine 2786 /HPF (0-4); Urine Appearance Cloudy (Clear); Urine Color Brown (Yellow)
[2022-10-23 16:29] LABS: Bilirubin,Urine Moderate mg/dL (Negative); Blood, Urine Large mg/dL (Negative); Glucose,Urine (UA) 100 mg/dL (Negative); Ketones,Urine Trace mg/dL (Negative); Nitrite,Urine Negative (Negative); Protein,Urine >=300 mg/dL (Negative); Urine Specific Gravity 1.015 (1.001-1.035)
[2022-10-23] MEDS: ERTAPENEM 1,000 MG in SODIUM CHLORIDE 0.9% 100 ML IV SCH (21:06)
[2022-10-23] MEDS: ALUMINUM/MAGNES/SIMETH MAX STR 30 ML UDCUP PO PRN (22:15)
[2022-10-23] MEDS: METOCLOPRAMIDE 10 MG/2 ML VIAL IV PRN (23:12)
[2022-10-23] MEDS: DEXTROSE 5% NACL 0.9% 1,000 ML IV SCH (23:13)
[2022-10-24] MEDS: HYDROmorphone 1 MG/1 ML SYRINGE IV PRN ×3 (02:29→09:20)
[2022-10-24] MEDS: ONDANSETRON 4 MG/2 ML VIAL IV PRN (02:32)
[2022-10-24] MEDS: BUTALBITAL/ACETAMIN/CAFFEINE 50-325-40 MG TABLET PO PRN (05:17)
[2022-10-24] MEDS: METOCLOPRAMIDE 10 MG/2 ML VIAL IV PRN (05:44)
[2022-10-24 05:50] LABS: Hematocrit 24.3 VOL% (42.0-52.0); Immature Granulocytes % 1.5 %; Immature Granulocytes Absolute 0.17 #; Lymphocytes # 0.7 10*3/uL (1.4-4.0); Lymphocytes % 6.2 % (21.2-54.2); Mean Corpuscular HGB Conc 33.7 GM/DL (32-36); Mean Corpuscular Volume 90.3 FL (87-102); Mean Platelet Volume 9.3 FL (9.6-12.0); Monocytes # 1.5 10*3/uL (0.11-0.8); Monocytes % 12.6 % (1.7-12.7); Neutrophils % 79.7 % (38.7-73.9); Platelet Count 200 T/CUMM (130-400); Red Cell Distribution Width 13.3 % (9.3-17.3); White Blood Count 11.6 T/CUMM (4-12)
[2022-10-24 05:55] LABS: Alanine Aminotransferase 23 U/L (16-61); Albumin 2.4 G/DL (3.4-5.0); Alkaline Phosphatase 63 U/L (45-117); Aspartate Amino Transferase 26 U/L (0-37); Bilirubin,Total < 0.39 MG/DL (0.20-1.00); Blood Urea Nitrogen 16 MG/DL (7-18); Calcium 7.8 MG/DL (8.5-10.1); Carbon Dioxide 19 MMOL/L (21-32); Chloride 101 MMOL/L (98-107); Glucose 124 MG/DL (74-106); Osmolality,Calculated 269.2 MOS/KG (273-304); Potassium 3.6 MMOL/L (3.5-5.1); Sodium 134 MMOL/L (136-145); Total Protein 6.1 G/DL (6.4-8.2)
[2022-10-24 06:10] LABS: Hemoglobin 8.2 GM/DL (14.0-18.0); Red Blood Count 2.69 MC/CUMM (3.8-5.5)
[2022-10-24] MEDS: ASPIRIN EC 81 MG TABLET PO SCH (09:21)
[2022-10-24] MEDS: PREGABALIN 75 MG CAPSULE PO SCH ×2 (09:21→20:23)
[2022-10-24] MEDS: TAMSULOSIN 0.4 MG CAPSULE PO SCH (09:22)
[2022-10-24] MEDS: RANOLAZINE 500 MG TABLET PO SCH ×2 (09:22→20:23)
[2022-10-24] MEDS: ATORVASTATIN 40 MG TABLET PO SCH (09:22)
[2022-10-24] MEDS: carvediloL 12.5 MG TABLET PO SCH ×2 (09:22→20:23)
[2022-10-24] MEDS: PANTOPRAZOLE 40 MG TABLET PO SCH (09:22)
[2022-10-24] MEDS: FINASTERIDE 5 MG TABLET PO SCH (09:22)
[2022-10-24] MEDS: ALUMINUM/MAGNES/SIMETH MAX STR 30 ML UDCUP PO PRN (09:22)
[2022-10-24] MEDS: MORPHINE ER 15 MG TABLET PO SCH ×2 (09:27→20:23)
[2022-10-24] MEDS: DEXTROSE 5% NACL 0.9% 1,000 ML IV SCH (15:34)
[2022-10-24] MEDS: ERTAPENEM 1,000 MG in SODIUM CHLORIDE 0.9% 100 ML IV SCH (20:23)
[2022-10-25] MEDS: BUTALBITAL/ACETAMIN/CAFFEINE 50-325-40 MG TABLET PO PRN (04:00)
[2022-10-25 05:02] LABS: Basophils % 0.1 % (0.0-0.8); Eosinophils # 0.2 10*3/uL (0.0-0.87); Eosinophils % 1.6 % (0.00-10.9); Hematocrit 19.9 VOL% (42.0-52.0); Hemoglobin 6.8 GM/DL (14.0-18.0); Immature Granulocytes % 0.5 %; Immature Granulocytes Absolute 0.05 #; Lymphocytes # 1.1 10*3/uL (1.4-4.0); Lymphocytes % 11.4 % (21.2-54.2); Mean Corpuscular HGB Conc 34.2 GM/DL (32-36); Mean Corpuscular Volume 89.2 FL (87-102); Mean Platelet Volume 9.6 FL (9.6-12.0); Monocytes # 1.4 10*3/uL (0.11-0.8); Monocytes % 15.2 % (1.7-12.7); Neutrophils % 71.2 % (38.7-73.9); Platelet Count 194 T/CUMM (130-400); Red Blood Count 2.23 MC/CUMM (3.8-5.5); Red Cell Distribution Width 13.3 % (9.3-17.3); White Blood Count 9.2 T/CUMM (4-12)
[2022-10-25 05:24] LABS: Alanine Aminotransferase 30 U/L (16-61); Albumin 2.3 G/DL (3.4-5.0); Alkaline Phosphatase 55 U/L (45-117); Aspartate Amino Transferase 48 U/L (0-37); Bilirubin,Total < 0.39 MG/DL (0.20-1.00); Blood Urea Nitrogen 13 MG/DL (7-18); Calcium 8.1 MG/DL (8.5-10.1); Carbon Dioxide 25 MMOL/L (21-32); Chloride 104 MMOL/L (98-107); Glucose 115 MG/DL (74-106); Osmolality,Calculated 270.1 MOS/KG (273-304); Potassium 3.4 MMOL/L (3.5-5.1); Sodium 135 MMOL/L (136-145); Total Protein 5.8 G/DL (6.4-8.2)
[2022-10-25] MEDS ORDERED: SODIUM CHLORIDE 0.9% 1,000 ML IV PRN (05:31)
[2022-10-25] MEDS ORDERED: POTASSIUM CHLORIDE 20 MEQ TABLET PO ONE (08:15)
[2022-10-25] MEDS: PANTOPRAZOLE 40 MG TABLET PO SCH (08:16)
[2022-10-25] MEDS: RANOLAZINE 500 MG TABLET PO SCH ×2 (08:17→21:07)
[2022-10-25] MEDS: ASPIRIN EC 81 MG TABLET PO SCH (08:17)
[2022-10-25] MEDS: ATORVASTATIN 40 MG TABLET PO SCH (08:17)
[2022-10-25] MEDS: MORPHINE ER 15 MG TABLET PO SCH ×2 (08:17→21:07)
[2022-10-25] MEDS: TAMSULOSIN 0.4 MG CAPSULE PO SCH (08:17)
[2022-10-25] MEDS: PREGABALIN 75 MG CAPSULE PO SCH ×2 (08:17→21:07)
[2022-10-25] MEDS: FINASTERIDE 5 MG TABLET PO SCH (08:17)
[2022-10-25] MEDS: carvediloL 12.5 MG TABLET PO SCH ×2 (08:17→21:07)
[2022-10-25] MEDS: CIPROFLOXACIN INJ 400 MG/200 ML PREMIX IV SCH (16:53)
[2022-10-25] MEDS: HYDROmorphone 1 MG/1 ML SYRINGE IV PRN (17:00)
[2022-10-26] MEDS: CIPROFLOXACIN INJ 400 MG/200 ML PREMIX IV SCH (04:34)
[2022-10-26 05:58] LABS: Basophils % 0.3 % (0.0-0.8); Eosinophils # 0.2 10*3/uL (0.0-0.87); Hematocrit 26.6 VOL% (42.0-52.0); Hemoglobin 9.1 GM/DL (14.0-18.0); Immature Granulocytes % 0.4 %; Immature Granulocytes Absolute 0.03 #; Lymphocytes # 1.3 10*3/uL (1.4-4.0); Lymphocytes % 16.9 % (21.2-54.2); Mean Corpuscular HGB Conc 34.2 GM/DL (32-36); Mean Corpuscular Volume 90.2 FL (87-102); Mean Platelet Volume 9.5 FL (9.6-12.0); Monocytes # 0.9 10*3/uL (0.11-0.8); Monocytes % 12.3 % (1.7-12.7); Neutrophils % 67.1 % (38.7-73.9); Platelet Count 196 T/CUMM (130-400); Red Blood Count 2.95 MC/CUMM (3.8-5.5); Red Cell Distribution Width 14.4 % (9.3-17.3); White Blood Count 7.5 T/CUMM (4-12)
[2022-10-26 06:18] LABS: Albumin 2.2 G/DL (3.4-5.0); Bilirubin,Total 0.5 MG/DL (0.20-1.00); Calcium 8.1 MG/DL (8.5-10.1); Osmolality,Calculated 272.8 MOS/KG (273-304); Potassium 3.9 MMOL/L (3.5-5.1); Total Protein 5.8 G/DL (6.4-8.2)
[2022-10-26] MEDS: PREGABALIN 75 MG CAPSULE PO SCH (08:26)
[2022-10-26] MEDS: MORPHINE ER 15 MG TABLET PO SCH (08:26)
[2022-10-26] MEDS: RANOLAZINE 500 MG TABLET PO SCH (08:26)
[2022-10-26] MEDS: PANTOPRAZOLE 40 MG TABLET PO SCH (08:27)
[2022-10-26] MEDS: TAMSULOSIN 0.4 MG CAPSULE PO SCH (08:27)
[2022-10-26] MEDS: ATORVASTATIN 40 MG TABLET PO SCH (08:27)
[2022-10-26] MEDS: carvediloL 12.5 MG TABLET PO SCH (08:27)
[2022-10-26] MEDS: ASPIRIN EC 81 MG TABLET PO SCH (08:27)
[2022-10-26] MEDS: FINASTERIDE 5 MG TABLET PO SCH (08:27)
[2022-10-26] MEDS: BUTALBITAL/ACETAMIN/CAFFEINE 50-325-40 MG TABLET PO PRN (10:23)
[2022-10-26 11:55] VITALS: BP 149/85
== END 2022-10-26 15:04 | disposition home health service (06) | DRG 698 ==
LOC: N.EDINP 15:17 → N.ED 15:17 → N.2W 10-22 07:36
PROVIDERS: ADMIT Family Medicine; ATTEND Family Medicine